=== PATIENT | male | born 1990 | race Two or more races ===

== ENCOUNTER → 2020-11-12 | Outpatient (CLI) | payer SELFPAY | LOC: M LABSMTC 13:24 | PROVIDERS: ATTEND Pediatrics | DX: Z20.822 Contact with and (suspected) exposure to COVID-19 (principal) ==

== ENCOUNTER 2022-02-02 11:39 | Emergency (ER) | payer BC, SELFPAY ==
[~2022-02-02] VITALS: Ht 172.7 cm; Wt 80.9 kg
[2022-02-02] MEDS ORDERED: VENTAER INH (12:18)
[2022-02-02] MEDS ORDERED: ALBUTEROL 90 MCG/ACT 8GM HFA INHALER INH ONE (12:50)
[2022-02-02] MEDS ORDERED: methylPREDNISolone 125MG 2ML VIAL IV ONE (15:50)
[2022-02-02] MEDS ORDERED: KETOROLAC 30 MG/ML 1ML VIAL IV ONE (15:50)
[2022-02-02 16:45] LABS: BASO % 0.4 % (0.0-1.0); EOS # 0.1 10^3/uL (0.0-0.5); EOS % 1.4 % (0.0-3.0); HEMATOCRIT 44.6 % (42.0-52.0); HEMOGLOBIN 16.1 g/dl (13.5-17.5); LYMPH # 1.1 10^3/uL (1.5-5.0); MEAN CORPUSCULAR HEMOGLOBIN 30.8 pg (27.0-33.0); MEAN CORPUSCULAR HGB CONC 36.1 g/dl (32.0-36.5); MEAN CORPUSCULAR VOLUME 85.4 fl (80.0-96.0); MONO # 0.5 10^3/uL (0.0-0.8); NEUTROPHILS # 3.1 10^3/uL (1.5-8.5); PLATELET COUNT, AUTOMATED 222 10^3/uL (150-450); RED BLOOD COUNT 5.22 10^6/uL (4.30-6.10); WHITE BLOOD COUNT 4.9 10^3/uL (4.0-10.0)
[2022-02-02] MEDS ORDERED: PRED20TA PO (17:13)
[2022-02-02] MEDS ORDERED: ALBU83IN NEB (17:13)
[2022-02-02] MEDS ORDERED: NAPR-837 PO (17:13)
[2022-02-02] MEDS ORDERED: BENZ200C70 PO (17:13)
[2022-02-02 17:26] VITALS: BP 145/85
== END 2022-02-02 17:28 | disposition home or self-care (01) ==
LOC: M ED 11:39
DX: R06.02 Shortness of breath (principal); R07.9 Chest pain, unspecified; J45.909 Unspecified asthma, uncomplicated; Z79.51 Long term (current) use of inhaled steroids; Z79.899 Other long term (current) drug therapy
CPT/HCPCS: 71046; 80047; 85025; 87428; 94640; 96374; 96375; 99284; J1885; J2930

== ENCOUNTER 2022-08-13 18:08 | Emergency (ER) | payer SELFPAY ==
[~2022-08-13] VITALS: Ht 172.7 cm; Wt 81.2 kg
[~2022-08-13 18:08] MED LIST: ALBU2.5V10 NEB; BENZ200C70 PO; NAPR-837 PO; PRED20TA PO; VENTAER INH
[2022-08-13] MEDS ORDERED: PROPARACAINE 0.5% OPHTH SOL 15ML OU ONE (19:30)
[2022-08-13] MEDS ORDERED: FLUORESCEIN OPHTH 1 MG STRIP OU ONE (19:30)
[2022-08-13] MEDS ORDERED: CIPR0.3S6 OS (20:19)
[2022-08-13] MEDS ORDERED: CIPROFLOXACIN 0.3% OPHTH SOLN 2.5ML OS ONE (20:20)
[2022-08-13 20:52] VITALS: BP 124/78
== END 2022-08-13 21:06 | disposition home or self-care (01) ==
LOC: M ED 18:08
DX: T15.01XA Foreign body in cornea, right eye, initial encounter (principal); W50.0XXA Accidental hit or strike by another person, initial encounter; Y92.009 Unspecified place in unspecified non-institutional (private) residence as the place of occurrence of the external cause; Z79.51 Long term (current) use of inhaled steroids

== ENCOUNTER 2024-03-22 17:41 | Emergency (ER) | payer SELFPAY ==
[~2024-03-22] VITALS: Ht 172.7 cm; Wt 80.3 kg
[~2024-03-22 17:41] MED LIST changes: +CIPR0.3S37 OS
[2024-03-22 21:01] VITALS: BP 148/92; TEMP 97.8; O2SAT 100
[2024-03-22] MEDS ORDERED: IBUP-1022 PO (23:22)
[2024-03-22] MEDS: IBUPROFEN 600MG TAB PO ONE (23:30)
== END 2024-03-22 23:41 | disposition home or self-care (01) ==
LOC: M ED 17:41
DX: S63.92XA Sprain of unspecified part of left wrist and hand, initial encounter (principal); Y92.39 Other specified sports and athletic area as the place of occurrence of the external cause; Y93.B9 Activity, other involving muscle strengthening exercises; Y99.9 Unspecified external cause status; F12.10 Cannabis abuse, uncomplicated; Z79.51 Long term (current) use of inhaled steroids; Z79.1 Long term (current) use of non-steroidal anti-inflammatories (NSAID)